=== PATIENT | female | born 1985 | race Two or more races ===

== ENCOUNTER 2021-06-05 10:26 | Outpatient (CLI) | payer OTHER | END 2021-06-05 11:45 | disposition home or self-care (01) | LOC: PRENATAL 10:26 | PROVIDERS: ATTEND Obstetrics & Gynecology Maternal & Fetal Medicine | DX: O35.0XX1 Maternal care for (suspected) central nervous system malformation in fetus, fetus 1 (principal); O35.3XX1 Maternal care for (suspected) damage to fetus from viral disease in mother, fetus 1; O98.512 Other viral diseases complicating pregnancy, second trimester; O99.212 Obesity complicating pregnancy, second trimester; Z36.89 Encounter for other specified antenatal screening; Z3A.22 22 weeks gestation of pregnancy ==

== ENCOUNTER 2021-08-07 13:06 | Outpatient (CLI) | payer OTHER | END 2021-08-07 13:41 | disposition home or self-care (01) | LOC: PRENATAL 13:06 | PROVIDERS: ATTEND Obstetrics & Gynecology Maternal & Fetal Medicine | DX: O26.843 Uterine size-date discrepancy, third trimester (principal); O99.213 Obesity complicating pregnancy, third trimester; O09.513 Supervision of elderly primigravida, third trimester; Z36.89 Encounter for other specified antenatal screening; Z3A.31 31 weeks gestation of pregnancy ==

== ENCOUNTER 2021-09-25 08:30 | Inpatient (IN) | payer OTHER ==
[~2021-09-25] VITALS: Ht 157.5 cm; Wt 2.7 kg
[2021-09-29] MEDS ORDERED: PRENATAL CAPLE1 EAC1 PO (06:49)
[2021-10-01] MEDS ORDERED: COLACE100 MG PO (09:28)
[2021-10-01] MEDS ORDERED: SIMETHICONE125 M1 PO (09:28)
[2021-10-01] MEDS ORDERED: IBU800 MG PO (09:28)
[2021-10-02] MEDS ORDERED: SURFAK240 M1 PO (11:46)
[2021-10-02] MEDS ORDERED: IBU800 MG PO (11:46)
== END 2021-10-02 14:07 | disposition home or self-care (01) | DRG 788 ==
LOC: O/R 09-29 06:11 → OB/GYN 09-29 06:11
PROVIDERS: ADMIT Obstetrics & Gynecology; ATTEND Obstetrics & Gynecology
PROC: 4A1HXFZ Monitoring of Products of Conception, Cardiac Rhythm, External Approach (ICD-10-PCS; 2021-09-29)
PROC: 10D00Z1 Extraction of Products of Conception, Low, Open Approach (ICD-10-PCS; principal; 2021-09-29 07:00)
DX: O32.1XX0 Maternal care for breech presentation, not applicable or unspecified (principal); Z3A.39 39 weeks gestation of pregnancy; Z37.0 Single live birth